=== PATIENT | male | born 1995 | race Asian ===

== ENCOUNTER 2019-08-17 21:43 | Emergency (ER) | payer MEDICAID ==
[~2019-08-17] VITALS: Ht 175.3 cm; Wt 83.9 kg
[2019-08-17 21:48] VITALS: BP 143/96; Ht 175.3 cm; Wt 83.9 kg
== END 2019-08-17 22:43 | disposition home or self-care (01) ==
LOC: ED 21:43
DX: B00.2 Herpesviral gingivostomatitis and pharyngotonsillitis (principal)